=== PATIENT | male | born 1985 | race Caucasian/White ===

== ENCOUNTER 2017-10-05 09:01 | Emergency (ER) | payer BC, OTHER ==
[2017-10-05] MEDS: predniSONE 20 MG TAB PO (10:54)
[2017-10-05] MEDS: ALBUTEROL 0.083% (NEB) 2.5 MG/3 ML AMP HHN (11:03)
== END 2017-10-05 11:36 | disposition home or self-care (01) ==
LOC: FTE 09:01
DX: J06.9 Acute upper respiratory infection, unspecified (principal); J45.909 Unspecified asthma, uncomplicated
CPT/HCPCS: 71045; 94664; 99284-25